=== PATIENT | female | born 1945 | race Caucasian/White ===

== ENCOUNTER 2017-01-11 11:12 | Day surgery (SDC) | payer MEDICARE ==
[~2017-01-11 11:12] MED LIST: ADRENALIN ONE; ANCEF/STERILE WATER 2 GM/20 ML 2 GM/20 ML SYRINGE IV NR; MARCAINE-EPI 0.25%-1:200,000 INFILTRATI ONE; MARCAINE-EPI/PF 0.25%-1:200,000 INFILTRATI ONE
--- NOTE | 2017-01-11 13:14 | Anesthesia Consultation ---
Anesthesia Consult and Med Hx Date of service: 01/11/17 - Airway Anesthetic Teeth Evaluation: Good ROM Head & Neck: Adequate Mental/Hyoid Distance: Adequate Mallampati Class: Class II Intubation Access Assessment: Probably Good - Pulmonary Exam CTA: Yes - Cardiac Exam Cardiac Exam: RRR - Pre-Operative Health Status ASA Pre-Surgery Classification: ASA2 Proposed Anesthetic Plan: General - Pre-Anesthesia Comment Pre-Anesthesia Comments: No lithuanian, son at bedside to translate - Pulmonary Hx Smoking: No Hx Sleep Apnea: No (KAYLA PRE SCREEN LOW RISK) - Cardiovascular System Hx Hypertension: Yes (high cholesterol) - Other Systems Hx Cancer: No
--- NOTE | 2017-01-11 13:15 | Anesthesia Day of Surgery ---
Anesthesia Day of Surgery - Day of Surgery Patient Examined: Yes Patient H&P Reviewed: Yes Patient is NPO: Yes Beta Blockers: No Cardiac Clearance: No Pulmonary Clearance: No
[2017-01-11] MEDS: LACTATED RINGERS 1,000 ML IV SCH ×2 (13:31→15:40)
--- NOTE | 2017-01-11 13:44 | Post Operative Note ---
Date of procedure: 01/11/17 Pre-op diagnosis: hematuria Post-op diagnosis: same Findings: unremarkable meatal stenosis Procedure: cysto rpgs Anesthesia: GETA Surgeon: JOJO CHAU Estimated blood loss: none Specimen disposition: to lab Condition: stable Disposition: PACU
--- NOTE | 2017-01-11 13:46 | Discharge Summary ---
Short Stay Discharge Plan Activity: other (no straining ) Weight Bearing Status: Full Weight Bearing Diet: other (inc fluids ) Follow up with: PRIMARY CAREMD [Primary Care Provider] - 7 Days JOJO CHAU MD [Staff Physician] - 7 Days
[2017-01-11] MEDS ORDERED: XYLOCAINE MPF 2% ONE (13:47)
[2017-01-11] MEDS ORDERED: DIPRIVAN 10 MG/ML IV ONE (13:48)
[2017-01-11] MEDS ORDERED: SUBLIMAZE ONE (13:48)
[2017-01-11] MEDS ORDERED: ZOFRAN ONE (13:49)
[2017-01-11] MEDS ORDERED: DECADRON ONE (13:49)
[2017-01-11] MEDS ORDERED: OMNIPAQUE 300 MG/50 ML (CATH LAB) IV ONE ×2 (13:56)
[2017-01-11] MEDS ORDERED: WATER FOR IRRIG STERILE IR ONE (13:56)
[2017-01-11] MEDS ORDERED: PEPCID IV NR (14:00)
[2017-01-11] MEDS ORDERED: ROBINUL ONE (14:35)
--- NOTE | 2017-01-11 14:57 | Post Anesthesia Evaluation ---
- Post Anesthesia Evaluation Patient Participated: Yes Airway Patent: Yes Stable Respiratory Function: Yes Nausea/Vomiting: No Temp > 96.8F: Yes Pain Manageable: Yes Adequeate Hydration: Yes Anesthesia Complications: No
--- NOTE | 2017-01-11 15:24 | Fluoroscopy Report ---
RETROGRADE PYELOGRAM: There is adequate filling of the ureters and intrarenal collecting systems with no filling defects or anatomic abnormalities identified.
[2017-01-11 19:06] VITALS: BP 130/75
--- NOTE | 2017-01-11 22:54 | Operative Report ---
PREOPERATIVE DIAGNOSIS: Hematuria. POSTOPERATIVE DIAGNOSES: Meatal stenosis, posterior fibroids, minimal cystitis cystica. PROCEDURE: Cystoscopy, retrograde cytology exam. SURGEON: Suleiman Silverio M.D. ANESTHESIA: General. FINDINGS: This is a woman with ?hematuria, ?bladder lesion, now presents for cystoscopy. DESCRIPTION OF PROCEDURE: The patient brought to the operating room and placed on the operating table. Following induction of anesthesia, placed in lithotomy position, prepped and draped in usual sterile fashion. Cystourethroscopy showed a very narrowed meatus, which was dilated. The bladder was entered, showed minimal cystitis cystica along the trigone. Retrograde showed delicate ureters and collecting system with good drainage bilaterally. There were no lesions, but there was posterior impression consistent with fibroids. The patient tolerated the procedure well. No biopsies were required. She was brought to recovery in stable condition. Family notified. JOB# [id number] CORINNE/BHAVIN
== END 2017-01-11 16:55 | disposition home or self-care (01) ==
LOC: OR 11:12
PROVIDERS: ATTEND Urology
DX: N35.9 Urethral stricture, unspecified (principal); N30.81 Other cystitis with hematuria; D25.9 Leiomyoma of uterus, unspecified; E78.00 Pure hypercholesterolemia, unspecified; I10 Essential (primary) hypertension; Z79.899 Other long term (current) drug therapy
CPT/HCPCS: 36415; 52005; 74420; 84132; 88112; A4217; C1758; J0171; J0690; J1100; J2405; J2704; J3010; J7120; Q9967